=== PATIENT | female | born 1960 | race African-American/Black ===

== ENCOUNTER → 2024-12-11 11:16 | Outpatient (REF) | payer BC, SELFPAY ==
[2024-12-11 11:13] LABS: Glucose 116 mg/dl (70-99)
== END ==
LOC: PET 11:16
PROVIDERS: ATTENDING PHYSICIAN Internal Medicine Hematology & Oncology; REFERRING PHYSICIAN Radiology Diagnostic Radiology
DX: C15.9 Malignant neoplasm of esophagus, unspecified (principal); Z01.812 Encounter for preprocedural laboratory examination
CPT/HCPCS: 36415; 82947